=== PATIENT | female | born 1970 | race Two or more races ===

== ENCOUNTER → 2016-12-13 | Outpatient (CLI) | payer OTHER | LOC: FIMAGING 08:21 | DX: Z12.31 Encounter for screening mammogram for malignant neoplasm of breast (principal) | CPT/HCPCS: G0202 ==

== ENCOUNTER 2017-09-05 10:00 | Emergency (ER) | payer OTHER ==
[2017-09-05] MEDS ORDERED: NS 1,000 ML IV ONE ×2 (10:19→11:23)
--- NOTE | 2017-09-05 10:24 | EDPHY ---
General Time Seen by Provider: 09/05/17 10:08 Narrative: CHIEF COMPLAINT: Abdominal pain, C diff HISTORY OF PRESENT ILLNESS: Patient complains of generalized abdominal pain that has been worsening, and worsening diarrhea. She was diagnosed with C diff by stool sample on August 21. She reportedly also is positive for E coli in the stool. She was treated by her primary care physician for 3 days with ciprofloxacin. She also started metronidazole that day and took it accordingly until . At that time she was not tolerating the medication. She says she has flank pain, GI disturbance and generally was feeling worse. She contacted her physician but due to the holiday and insurance difficulties, she was unable to switched to vancomycin for 4 days. She did so on August 28. She has been taking 4 times daily since then. She was feeling better until yesterday, at which time she had worsening generalized abdominal pain, chills and more liquid diarrhea. No blood in the diarrhea. She also had vomiting that started last night with 3 subsequent episodes. No bloody emesis. No chest pain or shortness of breath. She does have some flank pain. The symptoms are described as moderate to severe. No predictable modifying factors. No other associated complaints. REVIEW OF SYSTEMS: Ten systems reviewed and are negative unless otherwise noted in the HPI PCP: Dr. Enriquez SPECIALISTS: None PAST MEDICAL HISTORY: C difficile infection PAST SURGICAL HISTORY: Uterine ablation years ago SOCIAL HISTORY: Nonsmoker. No alcohol or drug use. FAMILY HISTORY: Noncontributory EXAMINATION General Appearance: Alert, no distress Head: normocephalic, atraumatic Eyes: Pupils equal and round, no conjunctival pallor or injection ENT, Mouth: Mucous membranes moist Neck: Normal inspection, supple, non-tender Respiratory: No retractions or distress. Cardiovascular: Regular rate. Symmetric radial and DP pulses. Gastrointestinal: Abdomen is soft and nondistended. There is generalized tenderness that is mild. No tympany. No rigidity. No guarding. Nonacute abdomen Back: non-tender, no bony abnormalities Neurological: A&O, nonfocal, normal gait. Strength is symmetric. Skin: Warm and dry, no rash. No petechiae or purpura. Good signs of perfusion Extremities: Nontender, no pedal edema Psychiatric: Mood and affect normal DIFFERENTIAL DIAGNOSES: Including but not limited to C difficile colitis, pseudomembranous colitis, colitis, diverticulitis, gastritis, enteritis, gastroenteritis MDM: 10:20 a.m. Ongoing abdominal pain and watery diarrhea diagnosed with C difficile colitis 2 weeks ago. Initially on metronidazole therapy for 3 and half days. Then transition to vancomycin. She complains of worsening abdominal pain, diarrhea and chills. Abdominal exam is benign and nonacute, but I have ordered a CT scan due to her pathology and pain. Also ordered IV fluid, laboratory studies, GI pathogen panel. She is in no acute distress. 11:20 a.m. CBC shows mildly ptosis with hemoconcentration. Urinalysis shows ketones but no infection. CT pending. Chemistry pending. 12:13 p.m. Contacted by radiologist Dr. García. CT scan of the abdomen pelvis reveals no acute findings consistent with the C difficile colitis. There is a right adnexal mass that has grown since last imaging. Recommends pelvic ultrasound for delineation. This has been ordered. 12:20 p.m. Notified the patient of the CT scan findings. She is comfortable with proceeding with an ultrasound. 1:05 p.m. Resource Specialist Teacher at bedside 1:50 p.m. Notified by radiologist Dr. García. We discussed the ultrasound findings revealing a like her fibroids. No other significant findings noted. No torsion. 2:00 p.m. Patient re-evaluated. We discussed the laboratory study findings. We discussed the negative C diff result in the stool. I offered admission to the hospital for supportive care and IV fluid resuscitation. She would like to think about it. 2:20 p.m. Patient has elected to be discharged home. Her vital signs are stable. She is in no acute distress. I did offer admission to the hospital for supportive care but she has declined. I do feel she is stable for discharge home. We had a very lengthy discussion regarding the norovirus and the need for fluid balance. She is instructed to return to the emergency department should she change her mind or symptoms worsen. She is instructed to follow up with primary care physician and we discussed the contagion of the norovirus. She is comfortable this plan and discharged home stable condition. 2:38 p.m. Case discussed with the primary care physician on-call for Dr. Enriquez, Dr. Blanc. We discussed the patient's findings. He agrees with the plan and will follow up with patient accordingly. SUPERVISION: Patient was independently examined, but I discussed the case with my primary supervising physician Dr. Monaco. - Diagnostics Imaging Results: Imaging Impressions Abdomen CT 09/05/17 10:19 Impression: 1. Right adnexal mass measuring 7.3 x 3.6 cm for which ultrasound pelvis is recommended. 2. Sigmoid diverticulosis without diverticulitis or colitis. 3. No evidence of definite C. Difficile colitis. 4. Small hiatal hernia. 5. Prior cholecystectomy. 6. No CT evidence of appendicitis, abscess or bowel obstruction. Findings and recommendations discussed with Emergency Department physician, [place] at 1215 hour, 09/05/2017. Final report concurs with initial preliminary interpretation. Pelvic/Renal Ultrasound 09/05/17 12:12 Impression: 1. No ovarian torsion. 2. Right fundal exophytic 5.9 x 4.4 x 3.8 cm leiomyoma. Findings and recommendations discussed with Emergency Department physician, [place] at 1353 hour, 09/05/2017. Final report concurs with initial preliminary interpretation. - History Smoking Status: Never smoked - Objective Vital Signs: Initial Vital Signs Temperature (C) 97.7 F 09/05/17 10:04 Heart Rate 96 09/05/17 10:04 Respiratory Rate 20 09/05/17 10:04 Blood Pressure 143/86 H 09/05/17 10:04 O2 Sat (%) 96 09/05/17 10:04 O2 Delivery Mode Room Air Allergies/Adverse Reactions: minocycline [Minocycline] Allergy (Intermediate, Verified 09/05/17 10:03) Hives clarithromycin [From Biaxin] Allergy (Mild, Verified 09/05/17 10:03) stomache ache Home Medications: Medication Instructions Recorded Propranolol HCl [Inderal 40mg (*)] 40 mg PO PRN 08/29/16 Abx For Cdiff 09/05/17 Famotidine [Pepcid] 20 mg PO BID #10 tablet 09/05/17 Ondansetron Odt [Zofran Odt 4 mg 4 mg PO Q6 PRN #12 tab 09/05/17 (*)] Promethazine HCl [Phenergan 25mg 25 mg PO Q8 PRN #12 tab 09/05/17 (*)] Laboratory Results: Laboratory Results 09/05/17 10:50 09/05/17 10:50 09/05/17 09/05/17 09/05/17 10:50 10:50 10:50 WBC RBC Hgb Hct MCV MCH MCHC RDW Plt Count MPV Neut % (Auto) Lymph % (Auto) [place] % (Auto) Eos % (Auto) Baso % (Auto) Nucleat RBC Rel Count Absolute Neuts (auto) Absolute Lymphs (auto) Absolute Monos (auto) Absolute Eos (auto) Absolute Basos (auto) Absolute Nucleated RBC Immature Gran % Immature Gran # PT 13.9 SEC SEC (12.0-15.0) INR 1.05 (0.83-1.16) APTT 27.4 SEC SEC (23.0-38.0) Sodium 145 mEq/L H mEq/L (134-144) Potassium 4.2 mEq/L mEq/L (3.5-5.2) Chloride 110 mEq/L mEq/L (97-110) Carbon Dioxide 19 mEq/l L mEq/l (22-31) Anion Gap 16 mEq/L mEq/L (8-16) BUN 12 mg/dL mg/dL (7-23) Creatinine 0.7 mg/dL mg/dL (0.6-1.0) Estimated GFR > 60 Glucose 107 mg/dL H mg/dL (70-100) Calcium 9.7 mg/dL mg/dL (8.5-10.4) Total Bilirubin 0.7 mg/dL mg/dL (0.1-1.4) Conjugated Bilirubin 0.2 mg/dL mg/dL (0.0-0.5) Unconjugated Bilirubin 0.5 mg/dL mg/dL (0.0-1.1) AST 19 IU/L IU/L (14-46) ALT 35 IU/L IU/L (9-52) Alkaline Phosphatase 78 IU/L IU/L (38-126) Total Protein 7.4 g/dL g/dL (6.3-8.2) Albumin 4.4 g/dL g/dL (3.5-5.0) Lipase 87 IU/L IU/L (23-300) Beta HCG, Qual NEGATIVE Urine Color Urine Appearance Urine pH Ur Specific [place] Urine Protein Urine Ketones Urine Blood Urine Nitrate Urine Bilirubin Urine Urobilinogen Ur Leukocyte Esterase Urine RBC Urine WBC Ur Epithelial Cells Amorphous Sediment Urine Bacteria Hyaline Casts Urine Mucus Urine Glucose 09/05/17 09/05/17 10:50 10:40 WBC 10.72 10^3/uL H 10^3/uL (3.80-9.50) RBC 5.51 10^6/uL H 10^6/uL (4.18-5.33) Hgb 17.2 g/dL H g/dL (12.6-16.3) Hct 48.9 % H % (38.0-47.0) MCV 88.7 fL fL (81.5-99.8) MCH 31.2 pg pg (27.9-34.1) MCHC 35.2 g/dL g/dL (32.4-36.7) RDW 12.9 % % (11.5-15.2) Plt Count 356 10^3/uL 10^3/uL (150-400) MPV 9.8 fL fL (8.7-11.7) Neut % (Auto) 87.0 % H % (39.3-74.2) Lymph % (Auto) 7.6 % L % (15.0-45.0) [place] % (Auto) 3.5 % L % (4.5-13.0) Eos % (Auto) 1.1 % % (0.6-7.6) Baso % (Auto) 0.5 % % (0.3-1.7) Nucleat RBC Rel Count 0.0 % % (0.0-0.2) Absolute Neuts (auto) 9.33 10^3/uL H 10^3/uL (1.70-6.50) Absolute Lymphs (auto) 0.81 10^3/uL L 10^3/uL (1.00-3.00) Absolute Monos (auto) 0.38 10^3/uL 10^3/uL (0.30-0.80) Absolute Eos (auto) 0.12 10^3/uL 10^3/uL (0.03-0.40) Absolute Basos (auto) 0.05 10^3/uL 10^3/uL (0.02-0.10) Absolute Nucleated RBC 0.00 10^3/uL 10^3/uL (0-0.01) Immature Gran % 0.3 % % (0.0-1.1) Immature Gran # 0.03 10^3/uL 10^3/uL (0.00-0.10) PT INR APTT Sodium Potassium Chloride Carbon Dioxide Anion Gap BUN Creatinine Estimated GFR Glucose Calcium Total Bilirubin Conjugated Bilirubin Unconjugated Bilirubin AST ALT Alkaline Phosphatase Total Protein Albumin Lipase Beta HCG, Qual Urine Color ESHA Urine Appearance TURBID Urine pH 5.0 (5.0-7.5) Ur Specific [place] 1.029 (1.002-1.030) Urine Protein NEGATIVE (NEGATIVE) Urine Ketones TRACE H (NEGATIVE) Urine Blood NEGATIVE (NEGATIVE) Urine Nitrate NEGATIVE (NEGATIVE) Urine Bilirubin NEGATIVE (NEGATIVE) Urine Urobilinogen NEGATIVE EU EU (0.2-1.0) Ur Leukocyte Esterase NEGATIVE (NEGATIVE) Urine RBC 1-3 /hpf /hpf (0-3) Urine WBC 1-3 /hpf /hpf (0-3) Ur Epithelial Cells 1+ /lpf /lpf (NONE-1+) Amorphous Sediment PRESENT /hpf /hpf (NONE-1+) Urine Bacteria TRACE /hpf H /hpf (NONE SEEN) Hyaline Casts 1-5 /lpf /lpf (0-1) Urine Mucus 4+ /lpf H /lpf (NONE-1+) Urine Glucose NEGATIVE (NEGATIVE) Microbiology Results: MICROBIOLOGY 09/05/17 10:40 Stool Gastrointestinal Tract Panel (PCR) - Final Norovirus Gi/Gii Medications Given: Discontinued Medications Sodium Chloride (Ns) 1,000 mls @ 0 mls/hr IV EDNOW ONE; Wide Open PRN Reason: Protocol Stop: 09/05/17 10:20 Last Admin: 09/05/17 10:46 Dose: 1,000 mls Sodium Chloride (Ns) 1,000 mls @ 0 mls/hr IV EDNOW ONE; Wide Open PRN Reason: Protocol Stop: 09/05/17 11:24 Last Admin: 09/05/17 14:05 Dose: 1,000 mls Departure - Departure Disposition: Home, Routine, Self-Care Clinical Impression: Norovirus Abdominal pain Qualifiers: Abdominal location: generalized Qualified Code(s): R10.84 - Generalized abdominal pain Condition: Good Instructions: Loperamide (By mouth), Gastroenteritis (ED) Additional Instructions: 1. Clear liquids as discussed, advancing slowly as tolerated 2. Medications as prescribed as needed 3. Follow up with primary care physician 4. ED precautions as discussed Referrals: TAWA,JANELLE E [Primary Care Provider] - As per Instructions Stand Alone Forms: Work Excuse Prescriptions: Famotidine [Pepcid] 20 mg PO BID #10 tablet Ondansetron Odt [Zofran Odt 4 mg (*)] 4 mg PO Q6 PRN #12 tab PRN Reason: Nausea/Vomiting, Use 1st Promethazine HCl [Phenergan 25mg (*)] 25 mg PO Q8 PRN #12 tab PRN Reason: Nausea/Vomiting, Use 1st
[2017-09-05 11:05] LABS: PLATELET COUNT 356 10^3/uL (150-400)
[2017-09-05 11:19] LABS: INR 1.05 (0.83-1.16); PROTIME(PATIENT) 13.9 SEC (12.0-15.0)
[2017-09-05] MEDS ORDERED: IOPAMIDOL (ISOVUE-300) 100 ML BTL ONE (11:27)
[2017-09-05 14:05] VITALS: BP 123/78; PULSE 86; RESP 18; TEMP 98.2; O2SAT 97
== END 2017-09-05 15:52 | disposition home or self-care (01) ==
DX: A08.11 Acute gastroenteropathy due to Norwalk agent (principal); E86.9 Volume depletion, unspecified
CPT/HCPCS: Q9967